=== PATIENT | female | born 1945 | race Two or more races ===

== ENCOUNTER 2020-08-04 07:55 | Inpatient (IN) | payer MEDICARE, OTHER ==
--- NOTE | 2020-07-30 11:30 | Pre-op HX & Phy Repo 2 SIG ---
DATE OF ADMISSION: 08/04/2020 DATE OF SURGERY: Scheduled for surgery, August 04, 2020. HISTORY OF PRESENT ILLNESS: The patient is a 75-year-old female in overall stable health with invasive lobular carcinoma, two adjacent lesions in the left breast. The patient presented for breast imaging recently and in the left breast at 12 o'clock 3 cm from the nipple was an 8 x 7 x 8 mm suspicious nodule. Also in the left breast, but at 2 o'clock, 7 cm from the nipple, was a 7 x 6 x 5 mm suspicious nodule. Core biopsy of both left breast masses revealed invasive lobular carcinoma. They are estrogen and progesterone receptor positive, HER2 negative. The patient states she has had prior breast biopsy procedures, but not sure which side. Her mother had breast cancer at age 68. PAST MEDICAL HISTORY/MEDICATIONS: Tolterodine, pramipexole, valacyclovir, desvenlafaxine, and rosuvastatin. ALLERGIES TO MEDICATIONS: None. OPERATIONS: Removal of right ovary for benign disease in 1997, repair of broken wrist in 2017, and bilateral silicone breast implants, retropectoral performed in 2008. REVIEW OF SYSTEMS: The patient's review of systems reveals urinary urgency, depression, and restless legs syndrome. PHYSICAL EXAMINATION: GENERAL: The patient is 5 feet 4 inches, 128 pounds. VITAL SIGNS: Within normal limits. HEENT: Within normal limits. LUNGS: Clear. HEART: Regular rhythm. BREASTS: Moderate in size and slightly ptotic with bilateral implants. There is no palpable mass in either breast. There is no axillary or supraclavicular lymphadenopathy. ABDOMEN: Soft. PELVIC: Per primary care. RECTAL: Per primary care. EXTREMITIES: Without edema. NEUROLOGIC: Physiologic. IMPRESSION: 1. Invasive lobular carcinoma, left breast, two lesions upper outer quadrant. 2. History of urinary urgency, depression and restless legs syndrome. 3. History of bilateral retropectoral silicone breast implants. PLAN: The patient will undergo left breast partial mastectomy with preoperative bracketing needle localization to encompass both lesions as well as left axillary lymph node biopsy. DISCUSSION: I have had a full discussion with the patient regarding the nature of her condition, the nature of the surgery, indications, alternatives, options, and risks including bleeding, infection, scarring or distortion of breast or nipple, neuritis or neuralgia, need for additional procedures based on final pathology that could include additional surgery, radiation to the breast, chemotherapy or hormonal therapy. All questions have been answered. Harshad Aleman M.D. DR: TREVOR JOB#: [id number] CC:
[2020-08-03 10:14] LABS: APPEARANCE,URINE CLEAR; BASOPHILS % (AUTO) 1.3 % (0.0-2.0); BILIRUBIN, URINE NEGATIVE (NEGATIVE); COLOR,URINE PALE YELLOW; EOSINOPHILS % (AUTO) 3.1 % (0.0-3.0); GLUCOSE, URINE (UA) NEGATIVE (NEGATIVE); HEMATOCRIT 40.5 % (37.0-47.0); HEMOGLOBIN 14.3 G/DL (12.0-16.0); KETONES,URINE NEGATIVE (NEGATIVE); LEUKOCYTE ESTERASE ,URINE 1+ (NEGATIVE); LYMPHOCYTES % (AUTO) 28.3 % (20.0-45.0); MEAN CORPUSCULAR VOLUME 88 FL (80-99); MONOCYTES % (AUTO) 9.7 % (1.0-10.0); NEUTROPHILS % (AUTO) 57.6 % (45.0-75.0); NITRITE,URINE NEGATIVE (NEGATIVE); PH,URINE 7 (4.5-8.0); PLATELET COUNT 287 K/UL (150-450); PROTEIN,URINE NEGATIVE (NEGATIVE); RED BLOOD COUNT 4.61 M/UL (4.20-5.40); RED CELL DISTRIBUTION WIDTH 13.7 % (11.6-14.8); UROBILINOGEN,URINE NORMAL MG/DL (0.0-1.0); WHITE BLOOD COUNT 4.5 K/UL (4.8-10.8)
[2020-08-03 10:32] LABS: ANION GAP 4 mmol/L (5-15); BLOOD UREA NITROGEN 9 mg/dL (7-18); CALCIUM 8.8 MG/DL (8.5-10.1); CARBON DIOXIDE 31 MMOL/L (21-32); CHLORIDE 102 MMOL/L (98-107); CREATININE 0.6 MG/DL (0.55-1.30); POTASSIUM 3.9 MMOL/L (3.5-5.1); SODIUM 137 MMOL/L (136-145)
--- NOTE | 2020-08-03 10:33 | Diagnostic Imaging Report ---
Indication: Cough Technique: 2 views of the chest Comparison: None Findings: Lungs and pleural spaces are clear. The heart size is normal. The bones are unremarkable. Impression: Negative
[2020-08-04] VITALS (11 sets, daily range): BP systolic 138–167; BP diastolic 65–90
[~2020-08-04] VITALS: Ht 162.6 cm; Wt 57.6 kg
[~2020-08-04 07:55] MED LIST: CRESTOR10 M2 ORAL; DESVENLAFAXINE50 MG ORAL; DETROL2 MG ORAL; VALACYCLOVIR500 MG ORAL; [UNRECOGNIZED DRUG - OTHER] PO
[2020-08-04] MEDS ORDERED: Bacitracin 50000 Units Vial ONE (08:30)
--- NOTE | 2020-08-04 08:48 | Pre-Procedure Note/Attestation ---
Pre-Procedure Note/Attestation Complete Prior to Procedure Planned Procedure: left Procedure Narrative: left breast partial mastectomy with pre-operative needle localization and left axillary lymph node biopsy Indications for Procedure Pre-Operative Diagnosis: invasive lobular carcinoma left breast two lesions upper outer quadrant Attestation I attest that I discussed the nature of the procedure; its benefits; risks and complications; and alternatives (and the risks and benefits of such alternatives), prior to the procedure, with the patient (or the patient's legal primary care sales representative). I attest that, if there was a reasonable possibility of needing a blood transfusion, the patient (or the patient's legal primary care sales representative) was given the [facility] standardized written summary, pursuant to the Reagan Cogdell Blood Safety Act ([place] Health and Safety Code # 1645, as amended). I attest that I re-evaluated the patient just prior to the surgery and that there has been no change in the patient's H&P, except as documented below: none Harshad Aleman MD Aug 04, 2020 08:48
[2020-08-04] MEDS ORDERED: NS Irrig 1000ml ONE (09:00)
[2020-08-04] MEDS ORDERED: LR 1000ml ONE (09:00)
[2020-08-04] MEDS ORDERED: Sterile Water Irrig 1000ml IRRIG ONE (09:00)
[2020-08-04] MEDS ORDERED: fentaNYL 100 mcg/2 mL IV ONE (09:02)
[2020-08-04] MEDS ORDERED: Lidocaine 1% MPF 10mg/ml 5ml ONE (09:02)
[2020-08-04] MEDS ORDERED: ePHEDrine 50mg/ml Inj ONE (09:29)
--- NOTE | 2020-08-04 09:41 | Anethesia Preoperative Eval ---
Anesthesia Pre-op PMH/ROS General Date of Evaluation: Aug 04, 2020 Anesthesiologist: Deejay ASA Score: ASA 3 Mallampati Score Class I : Soft palate, uvula, fauces, pillars visible Class II: Soft palate, uvula, fauces visible Class III: Soft palate, base of uvula visible Class IV: Only hard plate visible Mallampati Classification: Class II Surgeon: Ash Diagnosis: Left breast cancer Surgical Procedure: left breast partial mastectomy and lymph node biopsy Anesthesia History: none Family History: no anesthesia problems Allergies: Coded Allergies: No Known Allergies (Unverified , 08/04/20) Medications: see eMAR Patient NPO?: Yes NPO Date: Aug 04, 2020 NPO Time: 00:00 Past Medical History Cardiovascular: Reports: other - HLD; Denies: HTN, CAD, DE, valve dz, arrhythmia Pulmonary: Denies: asthma, COPD, RICARDO, other Gastrointestinal/Genitourinary: Denies: GERD, CRI, ESRD, other Neurologic/Psychiatric: Denies: dementia, CVA, depression/anxiety, TIA, other Endocrine: Denies: DM, hypothyroidism, steroids, other HEENT: Denies: cataract (L), cataract (R), glaucoma, WAINWRIGHT (L), WAINWRIGHT (R), other Hematology/Immune: Reports: other - left breast cancer; Denies: anemia, DVT, bleeding disorder Musculoskeletal/Integumentary: Denies: OA, RA, DJD, DDD, edema, other PSxH Narrative: left wrist, left oophorectomy, bilateral cataract, breast augmentation Anesthesia Pre-op Phys. Exam Physician Exam Last Vital Signs Date Time Temp Pulse Resp B/P (MAP) Pulse Ox O2 Delivery O2 Flow Rate FiO2 08/04/20 08:26 97.0 60 18 153/85 97 Room Air Constitutional: NAD Cardiovascular: RRR Respiratory: CTA Airway Exam Mallampati Score: Class II MO: full ROM: full Anesthesia Pre-op A/P Labs Hematology Test 08/03/20 10:00 White Blood Count 4.5 K/UL (4.8-10.8) L Red Blood Count 4.61 M/UL (4.20-5.40) Hemoglobin 14.3 G/DL (12.0-16.0) Hematocrit 40.5 % (37.0-47.0) Mean Corpuscular Volume 88 FL (80-99) Mean Corpuscular Hemoglobin 31.1 PG (27.0-31.0) H Mean Corpuscular Hemoglobin Concent 35.4 G/DL (32.0-36.0) Red Cell Distribution Width 13.7 % (11.6-14.8) Platelet Count 287 K/UL (150-450) Mean Platelet Volume 7.1 FL (6.5-10.1) Neutrophils (%) (Auto) 57.6 % (45.0-75.0) Lymphocytes (%) (Auto) 28.3 % (20.0-45.0) Monocytes (%) (Auto) 9.7 % (1.0-10.0) Eosinophils (%) (Auto) 3.1 % (0.0-3.0) H Basophils (%) (Auto) 1.3 % (0.0-2.0) Coagulation Test 08/03/20 10:00 Prothrombin Time 11.2 SEC (9.30-11.50) Prothromb Time International Ratio 1.0 (0.9-1.1) Activated Partial Thromboplast Time 25 SEC (23-33) Chemistry Test 08/03/20 10:00 Sodium Level 137 MMOL/L (136-145) Potassium Level 3.9 MMOL/L (3.5-5.1) Chloride Level 102 MMOL/L (98-107) Carbon Dioxide Level 31 MMOL/L (21-32) Anion Gap 4 mmol/L (5-15) L Blood Urea Nitrogen 9 mg/dL (7-18) Creatinine 0.6 MG/DL (0.55-1.30) Estimat Glomerular Filtration Rate > 60 mL/min (>60) Glucose Level 91 MG/DL (74-106) Calcium Level 8.8 MG/DL (8.5-10.1) Studies Pre-op Studies: EKG - sb Risk Assessment & Plan Assessment: ASA III Plan: GA Status Change Before Surgery: No Pre-Antibiotics Drug: ancef 1g Given Within 1 Hr of Incision: Yes Estrella Villalba MD Aug 04, 2020 09:41
[2020-08-04] MEDS ORDERED: LR 1000ml 1,000 ML IVLG SCH (09:45)
[2020-08-04] MEDS ORDERED: Hydromorphone 0.5mg/0.5ml inj IVP PRN (09:45)
[2020-08-04] MEDS ORDERED: Ketorolac 30mg Inj IV PRN (09:45)
[2020-08-04] MEDS ORDERED: LORazepam Inj 2mg/ml 1ml IV PRN (09:45)
[2020-08-04] MEDS ORDERED: fentaNYL 100 mcg/2 mL IV PRN (09:45)
[2020-08-04] MEDS ORDERED: Metoclopramide 10mg/2ml Inj IVP PRN (09:45)
[2020-08-04] MEDS ORDERED: DiphenhydrAMINE 50mg/ml Inj IVP PRN (09:45)
--- NOTE | 2020-08-04 10:50 | Immediate Post-Op Evaluation ---
Immediate Post-Op Evalulation Immediate Post-Op Evalulation Procedure: Left breast partial mastectomy with lnb Date of Evaluation: Aug 04, 2020 Time of Evaluation: 10:57 IV Fluids: 1L Blood Products: 0 Estimated Blood Loss: min Urinary Output: 0 Blood Pressure Systolic: 154 Blood Pressure Diastolic: 65 Pulse Rate: 66 Respiratory Rate: 16 O2 Sat by Pulse Oximetry: 100 Temperature (Fahrenheit): 97 Pain Score (1-10): 0 Nausea: No Vomiting: No Complications 0 Patient Status: awake, reacts, patent, none Hydration Status: adequate Drug: Ancef 1g Given Within 1 Hr of Incision: Yes Estrella Villalba MD Aug 04, 2020 10:50
--- NOTE | 2020-08-04 10:56 | Brief Operative Note ---
Immediate Post Operative Note Operative Note Pre-op Diagnosis: invasive lobular carcinoma left breast two lesions upper outer quadrant Procedure: left breast partial mastectomy with pre-operative needle localization x 2 and left axillary lymph node biopsy Post-op Diagnosis: same Post-op Diagnosis: same as pre-op Findings: consistent w/pre-op dx studies Surgeon: caleb Anesthesiologist: gama Anesthesia: general Specimen: yes - left breast lesions and left axillary lymph node Complications: none Condition: stable Fluids: see anesthesia record Estimated Blood Loss: minimal Drains: KATJA Implant(s) used?: No Harshad Aleman MD Aug 04, 2020 10:56
[2020-08-04] MEDS ORDERED: HYDROmorphone 1mg/ml Carpuject SUBQ PRN (11:00)
--- NOTE | 2020-08-04 12:00 | NUR ---
NURSE NOTES: RECIEVED PT.FROM PACU VIA BED ACCOMPANIED BY NSG. STAFF.PT. IS AWAKE AND ALERT S/P LEFT BREAST PARTIAL MASTECTOMY LEFT LYMPH NODE BIOPSY. V/S TAKEN AND RECORDED,MADE WARM AND COMFORTABLE IN BED.CALL LIGHT WITHIN REACH.WILL CONTINUE TO MONITOR.
--- NOTE | 2020-08-04 12:14 | Operative Note - Dictated ---
DATE OF OPERATION: 08/04/2020 SURGEON: Harshad Aleman MD. SVP DIGITAL SALES: None. ANESTHESIOLOGIST: Dr. Estrella Villalba. TYPE OF ANESTHESIA: General. PREOPERATIVE DIAGNOSIS: Invasive lobular carcinoma, left breast, two lesions upper outer breast. POSTOPERATIVE DIAGNOSIS: Invasive lobular carcinoma, left breast, two lesions upper outer breast. OPERATION PERFORMED: Left breast partial mastectomy with preoperative needle localization x2 and left axillary lymph node biopsy. DESCRIPTION OF PROCEDURE: The patient was taken to the operating room and under general anesthesia with sequential compression device stockings in place, she was prepped and draped in usual fashion. One lesion was located at 12 o'clock in the left breast 3 cm from the nipple and the other lesion was at 2 o'clock in the left breast 7 cm from the nipple, both wires approached from the left side. A curvilinear incision was made from approximately 12 to 3 o'clock and flaps dissected circumferentially with cautery. The lesions were close to the pectoralis muscle and she had retropectoral breast implants. Both lesions were resected in the same specimen en bloc. After orienting the specimen with sutures placed anterior, superior, and medial, tissue was given to the pathologist who revealed grossly clear margins of both lesions. The field was irrigated with sterile water and antibiotic solution and hemostasis very carefully achieved with cautery. The incision was closed with continuous 2-0 Vicryl, deep dermal subcutaneous sutures followed by continuous 5-0 Monocryl subcuticular suture. A vertical left axillary incision was made achieving hemostasis with cautery and incising the clavipectoral fascia using the Thunderbeat vessel sealing electrosurgical device. The lower level axillary contents were removed with pathology confirming at least one lymph node. An additional node was resected. Hemostasis carefully achieved after irrigation through a separate stab incision inferiorly, a 10 flat Denilson drain was placed into the axilla and sutured to the skin with 2-0 nylon skin suture. After ascertaining, hemostasis was secured. The clavipectoral fascia was closed with interrupted 3-0 Vicryl, subcutaneous tissues closed with interrupted 3-0 Vicryl and skin closed with continuous 4-0 Monocryl subcuticular suture. Mastisol and half-inch Steri-Strips were applied to both incisions followed by dry sterile dressings. Final sponge and needle counts were correct. The patient tolerated the procedure well and left the operating room in good condition. Harshad Aleman M.D. DR: RICHELLE JOB#: [id number] CC: DELMY
[2020-08-04] MEDS: D5 1/2NS w/KCl 20mEq 1,000 ML IV SCH (14:09)
[2020-08-04] MEDS: HYDROcodone/Acetamin 5/325 tab ORAL PRN ×2 (16:06→21:40)
[2020-08-04] MEDS: ceFAZolin sod 1 GM in D5W 55 ML IV SCH (16:56)
[2020-08-04] MEDS ORDERED: valACYclovir HCL 500mg tab ORAL SCH (18:15)
--- NOTE | 2020-08-04 19:48 | NUR ---
HAND-OFF: Report given to JASON SUTHERLAND.
--- NOTE | 2020-08-04 19:54 | NUR ---
NURSE NOTES:patient alert and oriented denies any pain or discomfort. encouraged use of is
[2020-08-05] VITALS: BP 141/82
[2020-08-05] MEDS: D5 1/2NS w/KCl 20mEq 1,000 ML IV SCH (01:49)
[2020-08-05] MEDS: ceFAZolin sod 1 GM in D5W 55 ML IV SCH (01:55)
[2020-08-05 04:00] VITALS: BP 138/80
[2020-08-05] MEDS: HYDROcodone/Acetamin 5/325 tab ORAL PRN (05:30)
--- NOTE | 2020-08-05 06:57 | NUR ---
NURSE HAND-OFF: Important Events on Shift:[] patient slept well, no distress, needs only minimal assist to the bathroom no, did not need any iv pain meds or any nausea medication for the shift Patient Status: [] stable Diet: [] regular Pending Orders: [] none Pending Results/Labs:[] none Pending MD notification:[]none Latest Vital Signs: Temperature 97.5 , Pulse 67 , B/P 138 /80 , Respiratory Rate 20 , O2 SAT 96 , Nasal Cannula, O2 Flow Rate 3 . Vital Sign Comment: [] Latest Kirby Fall Score: 15 Fall Risk: Low Risk Safety Measures: Call light Within Reach, Bed Alarm Zone 2, Side Rails Side Rails x2, Bed position Low and Locked. Fall Precautions: Door Sign Patient Fall Education Report given to []. Addendum: 08/05/20 at 0753 by Mckenzie Cisse RN report given to elle an
--- NOTE | 2020-08-05 07:50 | NUR ---
NURSE NOTES: Report received from Mckenzie ALLEN, rounds made. Patient resting in semi-fowlers position in bed. AOx4, calm. Respirations even/unlabored on RA. IVF infusing to right hand, site asymptomatic, will heplock this AM, patient tolerating PO fluids well. Appetite good no NV. Left breast/axillary surgical dressing CDI, surgical bra in place, left arm warm, wiggles fingers, able to move arm. Left breast surgical site pain 1/10. Call light in reach, bed in lowest position, will continue to monitor.
[2020-08-05 08:00] VITALS: BP 131/76
--- NOTE | 2020-08-05 10:46 | General Progress Note ---
Progress Note Progress Note AVSS Using [place] for pain. Feels well left breast and axilla incisions healing with intact steristrips KATJA 30cc serosang Imp: stable Plan: discharge Rx [place] #24 f/u office 08/12/19 Instructions/limitations/supplies discussed/provided Harshad Aleman MD Aug 05, 2020 10:46
--- NOTE | 2020-08-05 11:10 | 48 Hour Post Anesthesia Eval ---
Post Anesthesia Evaluation Procedure: Left breast partial mastectomy with lnb Date of Evaluation: Aug 05, 2020 Airway: patent Nausea: No Vomiting: No Pain Intensity: 0 Hydration Status: adequate Cardiopulmonary Status: at baseline Mental Status/LOC: patient returned to baseline Post-Anesthesia Complications: 0 Follow-up care needed: ready to discharge Estrella Villalba MD Aug 05, 2020 11:10
[2020-08-05 11:36] VITALS: BP 137/76
[2020-08-05] MEDS ORDERED: NORCO 5-325 TA1 EAC1 ORAL (11:47)
--- NOTE | 2020-08-05 12:05 | NUR ---
NURSE NOTES: Discharge instructions and prescription x1 reviewed with patient, verbalized understanding. Demonstrated KATJA care/emptying every 4 hours/keeping bulb compressed/reading output measurements and keeping log, patient returned demonstration correctly. Provided 4x4 gauze, paper tape, measuring cups (small medicine cups and one large specimen cup). All belongings given to patient. ID bracelet removed. Right hand IV discontinued, no active bleeding. Ambulated down to lobby with Rossy ALLEN, in stable condition. Discharged home at 1205.
--- NOTE | 2020-08-05 12:29 | NUR ---
CASE MANAGEMENT:INITIAL REVIEW 75 YR OLD FEMALE FROM HOME FOR PLANNED SURGERY CC;LT BREAST INVASIVE LOBULAR CARCINOMA SI;LT BREAST PARTIAL MASTECTOMY. LT AXILLARY LYMPH NODE BIOPSY. 97.0 60 18 153/85 97% ON RA UA+ LEUKOCYTE ESTERASE COVID RAPID ~ NEGATIVE CXR ~ NEGATIVE IS;DILAUDID IV FENTANYL IV ATIVAN IV REGLAN IV HYDRALAZINE IV BENADRYL IV ADMITTED TO MED SURG FOR POST OP CARE MED SURG STATUS DCP;FROM HOME
== END 2020-08-05 12:05 | disposition home or self-care (01) | DRG 581 ==
LOC: SUR 07:55 → 3E 11:51
PROC: 07B60ZX Excision of Left Axillary Lymphatic, Open Approach, Diagnostic (ICD-10-PCS; principal; 2020-08-04 09:00)
PROC: 0HBU0ZZ Excision of Left Breast, Open Approach (ICD-10-PCS; principal; 2020-08-04 09:00)
DX: C50.812 Malignant neoplasm of overlapping sites of left female breast (principal); Z17.0 Estrogen receptor positive status [ER+]; R39.15 Urgency of urination; F32.9 Major depressive disorder, single episode, unspecified; G25.81 Restless legs syndrome; Z98.82 Breast implant status
CPT/HCPCS: 36415; 71046; 80048; 81001; 85025; 85610; 85730; 93005; 94003; 94150; U0002